=== PATIENT | female | born 1940 | race Caucasian/White ===

== ENCOUNTER → 2017-03-23 | Outpatient (CLI) | payer MEDICARE ==
[~2017-03-23] MED LIST: ADVIL200 M1 PO; ASPIR 8181 M1 PO; NEXIUM40 MG PO; PRESERVISION T1 EACH PO; STOOL SOFTENER100 M1 PO; ZOCOR20 MG PO
== END | disposition home or self-care (01) ==
LOC: CDC
DX: R91.8 Other nonspecific abnormal finding of lung field (principal); J90 Pleural effusion, not elsewhere classified
CPT/HCPCS: 93000

== ENCOUNTER 2017-03-25 08:19 | Inpatient (IN) | payer OTHER, MEDICARE ==
[~2017-03-25] VITALS: Ht 157.5 cm; Wt 82.1 kg
[~2017-03-25 08:19] MED LIST changes: -PRESERVISION T1 EACH PO
[2017-03-25] MEDS ORDERED: PRESERVISION T1 EACH PO (08:57)
[2017-03-25 08:58] LABS: EOSINOPHIL (%) 2.4 % (0-5); EOSINOPHIL COUNT 0.2 K/uL (0-0.3); HEMATOCRIT 45.1 % (36.0-46.0); IMMATURE GRANULOCYTE (%) 0.4 % (0.0-0.7); INSTRUMENT ABS NEUTROPHIL CT 4.8 K/uL; LYMPHOCYTE COUNT 1.7 K/uL (1.0-2.8); MCH 29.7 PG (29.0-34.0); MCHC 31.3 G/DL (30.0-36.0); MCV 94.9 FL (83-99); MONOCYTE (%) 8.4 % (3-12); MONOCYTE COUNT 0.6 K/uL (0-0.8); NEUTROPHIL (%) 64.7 % (45-76); NEUTROPHIL COUNT 4.8 K/uL (1.8-6.4); PLATELET COUNT 197 K/uL (156-360); RBC DIS.WIDTH-CV 12.6 % (11.8-14.6); RBC DIS.WIDTH-SD 43.9 % (39-53); RED BLOOD COUNT 4.75 M/uL (3.80-5.20); WHITE BLOOD COUNT 7.4 K/uL (4.1-10.2)
[2017-03-25 09:06] LABS: CHLORIDE 107 mEq/L (99-109); POTASSIUM 3.6 mEq/L (3.7-5.4); SODIUM 143 mEq/L (136-147)
[2017-03-25 09:07] LABS: PROTHROMBIN TIME 9.9 (9.2-11.2)
[2017-03-25 09:09] LABS: GLUCOSE 108 mg/dL (70-99)
[2017-03-25 09:10] LABS: ANION GAP 9 MEQ/L (2-14)
[2017-03-25 09:11] LABS: TOTAL BILIRUBIN 0.5 mg/dL (0.0-1.0)
[2017-03-25 09:12] LABS: ALKALINE PHOSPHATASE 82 IU/L (3-129); GFR ESTIMATE (CALCULATED) > 59 mL/min/
[2017-03-25 09:13] LABS: UREA NITROGEN (BUN) 18 mg/dL (9-23)
[2017-03-25 09:25] VITALS: BP 135/78
[2017-03-25 17:30] VITALS: BP 127/62
[2017-03-25 19:55] VITALS: BP 163/70
[2017-03-26] VITALS (7 sets, daily range): BP systolic 128–143; BP diastolic 61–87
[2017-03-26 09:28] LABS: HEMATOCRIT 39.4 % (36.0-46.0); MCH 30.6 PG (29.0-34.0); MCHC 31.7 G/DL (30.0-36.0); MCV 96.6 FL (83-99); PLATELET COUNT 180 K/uL (156-360); RBC DIS.WIDTH-SD 46.5 % (39-53); RED BLOOD COUNT 4.08 M/uL (3.80-5.20); WHITE BLOOD COUNT 10.5 K/uL (4.1-10.2)
[2017-03-26 09:55] LABS: ANION GAP 9 MEQ/L (2-14); CHLORIDE 102 MEQ/L (99-109); GFR ESTIMATE (CALCULATED) > 59 mL/min/; GLUCOSE 156 mg/dL (70-99); POTASSIUM 3.7 MEQ/L (3.7-5.4); SAMPLE HEMOLYSIS CHECK 0; SAMPLE ICTERIC CHECK 0; SAMPLE LIPEMIA CHECK 0; SODIUM 138 MEQ/L (136-147); UREA NITROGEN (BUN) 17 mg/dL (9-23)
[2017-03-27 04:44] VITALS: BP 140/60
[2017-03-27 06:14] LABS: HEMATOCRIT 34.6 % (36.0-46.0); MCH 30.2 PG (29.0-34.0); MCHC 31.2 G/DL (30.0-36.0); MCV 96.6 FL (83-99); MEAN PLAT.VOLUME 10.2 uM^3 (9.5-12.4); PLATELET COUNT 138 K/uL (156-360); RBC DIS.WIDTH-CV 12.9 % (11.8-14.6); RBC DIS.WIDTH-SD 46.3 % (39-53); RED BLOOD COUNT 3.58 M/uL (3.80-5.20); WHITE BLOOD COUNT 8.5 K/uL (4.1-10.2)
[2017-03-27 08:08] VITALS: BP 133/60
[2017-03-27 11:24] VITALS: BP 137/64
[2017-03-27 16:15] VITALS: BP 124/58
[2017-03-27 20:10] VITALS: BP 132/60; BP 155/67
[2017-03-28 00:19] VITALS: BP 132/60
[2017-03-28 04:22] VITALS: BP 133/65
[2017-03-28 06:13] LABS: HEMATOCRIT 30.5 % (36.0-46.0); MCH 30.4 PG (29.0-34.0); MCHC 31.5 G/DL (30.0-36.0); MCV 96.5 FL (83-99); MEAN PLAT.VOLUME 10.4 uM^3 (9.5-12.4); PLATELET COUNT 145 K/uL (156-360); RBC DIS.WIDTH-CV 12.8 % (11.8-14.6); RBC DIS.WIDTH-SD 45.7 % (39-53); RED BLOOD COUNT 3.16 M/uL (3.80-5.20)
[2017-03-28 06:53] LABS: ANION GAP 7 MEQ/L (2-14); CHLORIDE 103 MEQ/L (99-109); GFR ESTIMATE (CALCULATED) > 59 mL/min/; SAMPLE HEMOLYSIS CHECK 2; SAMPLE ICTERIC CHECK 0; SAMPLE LIPEMIA CHECK 0; SODIUM 139 MEQ/L (136-147); UREA NITROGEN (BUN) 12 mg/dL (9-23)
[2017-03-28 06:57] LABS: GLUCOSE 112 mg/dL (70-99)
[2017-03-28 08:19] VITALS: BP 146/66
[2017-03-28 12:04] VITALS: BP 131/62
[2017-03-28 16:12] VITALS: BP 129/60
[2017-03-28 19:54] VITALS: BP 138/60
[2017-03-29] VITALS (8 sets, daily range): BP systolic 123–153; BP diastolic 61–76
[2017-03-30] VITALS (7 sets, daily range): BP systolic 118–160; BP diastolic 61–85
[2017-03-31 00:15] VITALS: BP 138/70
[2017-03-31 05:00] VITALS: BP 142/70
[2017-03-31 07:30] VITALS: BP 182/81
[2017-03-31 12:10] VITALS: BP 154/68
[2017-03-31 15:37] VITALS: BP 165/73
[2017-03-31] MEDS ORDERED: NORCO 5/3251 TABLET PO (18:01)
[2017-03-31] MEDS ORDERED: ADVAIR HFA120 INHALA IH (18:04)
== END 2017-03-31 20:15 | disposition home or self-care (01) | DRG 167 ==
LOC: 4EAST 08:19 → 2SOUTH 08:19 → 4EAST 17:20
PROVIDERS: Thoracic Surgery (Cardiothoracic Vascular Surgery)
DX: C34.92 Malignant neoplasm of unspecified part of left bronchus or lung (principal); J91.0 Malignant pleural effusion; J44.9 Chronic obstructive pulmonary disease, unspecified; K21.9 Gastro-esophageal reflux disease without esophagitis; E78.00 Pure hypercholesterolemia, unspecified; I10 Essential (primary) hypertension; E66.9 Obesity, unspecified; Z68.32 Body mass index [BMI] 32.0-32.9, adult; Z87.891 Personal history of nicotine dependence; Z90.710 Acquired absence of both cervix and uterus; Z80.0 Family history of malignant neoplasm of digestive organs
CPT/HCPCS: 71010; 71020; 80048; 80053; 85025; 85027; 85610; 86900; 86901; 86920; 88108; 88305; 88341 TC; 88342 TC; 93000; 94010; 94640; 94640 76; 94760; 94799; 99202; J0131; J0330; J1100; J1170; J1644; J2405; J2710; J3010; J7120; J7512

== ENCOUNTER 2017-10-20 11:47 | Inpatient (IN) | payer OTHER, MEDICARE ==
[~2017-10-20] VITALS: Ht 157.5 cm; Wt 77.5 kg
[~2017-10-20 11:47] MED LIST changes: +ADVAIR HFA120 INHALA IH; +LORAZEPAM0.5 MG PO; +NORCO 5/3251 TABLET PO; +ONDANSETRON HCL4 MG PO; +PRESERVISION T1 EACH PO; +PROCHLORPERAZIN10 MG PO
[2017-10-20 12:28] LABS: HEMATOCRIT 39.6 % (36.0-46.0); HEMOGLOBIN 12.2 G/DL (11.9-15.5); MCH 31.5 PG (29.0-34.0); MCHC 30.8 G/DL (30.0-36.0); MCV 102.3 FL (83-99); PLATELET COUNT 146 K/uL (156-360); RBC DIS.WIDTH-CV 13.2 % (11.8-14.6); RBC DIS.WIDTH-SD 50.1 % (39-53); RED BLOOD COUNT 3.87 M/uL (3.80-5.20); WHITE BLOOD COUNT 4.6 K/uL (4.1-10.2)
[2017-10-20 12:37] LABS: CHLORIDE 102 mEq/L (99-109); POTASSIUM 3.6 mEq/L (3.7-5.4); SODIUM 139 mEq/L (136-147)
[2017-10-20 12:39] LABS: GLUCOSE 109 mg/dL (70-99)
[2017-10-20 12:43] LABS: CREATININE 0.8 mg/dL (0.6-1.3); GFR ESTIMATE (CALCULATED) > 59 mL/min/; UREA NITROGEN (BUN) 15 mg/dL (9-23)
[2017-10-20] MEDS ORDERED: LEVOFLOXACIN500 MG PO (13:16)
[2017-10-20 14:13] LABS: TROP-I INTERPRETATION NEGATIVE; TROPONIN-I < 0.01 ng/mL (0.0-0.30)
[2017-10-20] MEDS ORDERED: TYLENOL PM EX-1 EACH PO (16:42)
[2017-10-20] MEDS ORDERED: PROAIR HFA8.5 GM IH (16:42)
[2017-10-20] MEDS ORDERED: SIMVASTATIN20 MG PO (16:43)
[2017-10-20] MEDS ORDERED: STOOL SOFTENER100 MG PO (16:51)
[2017-10-21 00:14] VITALS: BP 124/80
[2017-10-21 04:00] VITALS: BP 124/81
[2017-10-21 06:51] LABS: BASOPHIL (%) 0.3 % (0-1); EOSINOPHIL (%) 1.2 % (0-5); HEMATOCRIT 32.8 % (36.0-46.0); IMMATURE GRANULOCYTE (%) 0.3 % (0.0-0.7); MCH 31.2 PG (29.0-34.0); MCHC 30.5 G/DL (30.0-36.0); MCV 102.2 FL (83-99); MONOCYTE (%) 15.6 % (3-12); MONOCYTE COUNT 0.5 K/uL (0-0.8); NEUTROPHIL (%) 52.6 % (45-76); NEUTROPHIL COUNT 1.7 K/uL (1.8-6.4); PLATELET COUNT 123 K/uL (156-360); RBC DIS.WIDTH-CV 13.4 % (11.8-14.6); RBC DIS.WIDTH-SD 51.5 % (39-53); RED BLOOD COUNT 3.21 M/uL (3.80-5.20); WHITE BLOOD COUNT 3.3 K/uL (4.1-10.2)
[2017-10-21 06:54] LABS: CHLORIDE 106 MEQ/L (99-109); CREATININE 0.6 MG/DL (0.6-1.3); GFR ESTIMATE (CALCULATED) > 59 mL/min/; GLUCOSE 93 mg/dL (70-99); POTASSIUM 4.2 MEQ/L (3.7-5.4); SODIUM 141 MEQ/L (136-147); UREA NITROGEN (BUN) 13 mg/dL (9-23)
[2017-10-21 07:10] VITALS: BP 174/80
[2017-10-21 11:41] VITALS: BP 128/61
[2017-10-21 16:48] VITALS: BP 122/57
[2017-10-21 19:30] VITALS: BP 136/81
[2017-10-22] VITALS: BP 161/82
[2017-10-22 00:04] VITALS: BP 141/61
[2017-10-22 06:50] LABS: CREATININE 0.6 MG/DL (0.6-1.3); GFR ESTIMATE (CALCULATED) > 59 mL/min/
[2017-10-22 08:34] VITALS: BP 153/70
[2017-10-22 16:05] VITALS: BP 122/58
[2017-10-23] VITALS: BP 132/76
[2017-10-23 07:57] VITALS: BP 176/77
[2017-10-23 15:55] VITALS: BP 146/67
[2017-10-23 22:46] VITALS: BP 179/68
[2017-10-24 07:00] VITALS: BP 139/73
[2017-10-24 15:10] VITALS: BP 144/78
[2017-10-24 22:34] VITALS: BP 169/73
[2017-10-25 06:37] LABS: CHLORIDE 104 MEQ/L (99-109); CREATININE 0.5 MG/DL (0.6-1.3); GFR ESTIMATE (CALCULATED) > 59 mL/min/; GLUCOSE 88 mg/dL (70-99); MAGNESIUM 2.1 mg/dl (1.3-2.7); SODIUM 143 MEQ/L (136-147); UREA NITROGEN (BUN) 16 mg/dL (9-23)
[2017-10-25 06:40] LABS: POTASSIUM 3.1 MEQ/L (3.7-5.4)
[2017-10-25 07:04] LABS: HEMOGLOBIN 10.6 G/DL (11.9-15.5); MCH 31.4 PG (29.0-34.0); MCHC 31.2 G/DL (30.0-36.0); MCV 100.6 FL (83-99); PLATELET COUNT 138 K/uL (156-360); RBC DIS.WIDTH-CV 13.2 % (11.8-14.6); RBC DIS.WIDTH-SD 49.5 % (39-53); RED BLOOD COUNT 3.38 M/uL (3.80-5.20); WHITE BLOOD COUNT 6.1 K/uL (4.1-10.2)
[2017-10-25 07:55] VITALS: BP 137/63
[2017-10-25 15:00] VITALS: BP 132/61
[2017-10-26 00:08] VITALS: BP 148/70
[2017-10-26 06:33] LABS: CHLORIDE 102 MEQ/L (99-109); CREATININE 0.5 MG/DL (0.6-1.3); GFR ESTIMATE (CALCULATED) > 59 mL/min/; GLUCOSE 117 mg/dL (70-99); SODIUM 143 MEQ/L (136-147); UREA NITROGEN (BUN) 15 mg/dL (9-23)
[2017-10-26 08:21] VITALS: BP 150/67
[2017-10-26 16:15] VITALS: BP 155/82
[2017-10-26 23:31] VITALS: BP 153/69
[2017-10-27 07:22] VITALS: BP 151/73
[2017-10-27] MEDS ORDERED: CEFDINIR300 MG PO (12:30)
[2017-10-27] MEDS ORDERED: BENZONATATE100 MG PO (12:30)
[2017-10-27] MEDS ORDERED: SPIRIVA RESPIMAT4 GM IH (12:30)
[2017-10-27] MEDS ORDERED: PREDNISONE5 M1 PO (12:32)
[2017-10-27] MEDS ORDERED: ROBITUSSIN DM118 ML PO (12:40)
== END 2017-10-27 14:59 | disposition home health service (06) | DRG 193 ==
LOC: EME 11:47 → 5EAST 16:24 → EDOF 16:24 → ENRESERV 16:30 → CANRESERV 16:30 → ENRESERV 16:35 → CANRESERV 16:35 → ENRESERV 17:01 → 5EAST 19:26
PROVIDERS: Emergency Medicine; Internal Medicine
DX: J11.00 Influenza due to unidentified influenza virus with unspecified type of pneumonia (principal); J96.01 Acute respiratory failure with hypoxia; C34.92 Malignant neoplasm of unspecified part of left bronchus or lung; E78.5 Hyperlipidemia, unspecified; J44.0 Chronic obstructive pulmonary disease with (acute) lower respiratory infection; J98.11 Atelectasis; D89.9 Disorder involving the immune mechanism, unspecified; E87.6 Hypokalemia; K59.00 Constipation, unspecified; J90 Pleural effusion, not elsewhere classified; Y95 Nosocomial condition; K21.9 Gastro-esophageal reflux disease without esophagitis; Z92.21 Personal history of antineoplastic chemotherapy; Z87.891 Personal history of nicotine dependence; Z85.118 Personal history of other malignant neoplasm of bronchus and lung; Z90.710 Acquired absence of both cervix and uterus
CPT/HCPCS: 71045; 71046; 71275; 80048; 82565; 82948; 83605; 83735; 84484; 85025; 85027; 87040; 87070; 87205; 87449; 87502; 87641; 93005; 94640; 94640 76; 94760; 94799; 97530 GO; 99202; 99281; 99285; J0456; J0692; J1650; J2930; J3370; J7030; J7512